=== PATIENT | male | born 1950 | race Caucasian/White ===

== ENCOUNTER → 2018-10-29 | Outpatient (CLI) | payer MEDICARE ==
[~2018-10-29] MED LIST: ACHD5005 PO; CPR500T PO; NAPR-243 PO
== END ==
LOC: WOUNDCARE 13:22
PROVIDERS: ATTEND Surgery
DX: I74.3 Embolism and thrombosis of arteries of the lower extremities (principal); L97.512 Non-pressure chronic ulcer of other part of right foot with fat layer exposed; I70.235 Atherosclerosis of native arteries of right leg with ulceration of other part of foot; T65.222A Toxic effect of tobacco cigarettes, intentional self-harm, initial encounter
CPT/HCPCS: 99204

== ENCOUNTER → 2018-11-05 | Outpatient (CLI) | payer MEDICARE | LOC: WOUNDCARE 13:40 | PROVIDERS: ATTEND Surgery | DX: L97.512 Non-pressure chronic ulcer of other part of right foot with fat layer exposed (principal); I74.3 Embolism and thrombosis of arteries of the lower extremities; I70.235 Atherosclerosis of native arteries of right leg with ulceration of other part of foot; T65.222A Toxic effect of tobacco cigarettes, intentional self-harm, initial encounter; I96 Gangrene, not elsewhere classified | CPT/HCPCS: 99212 ==

== ENCOUNTER 2019-02-05 05:38 | Emergency (ER) | payer MEDICARE ==
[~2019-02-05] VITALS: Ht 187 cm; Wt 113.4 kg
--- NOTE | 2019-02-05 05:45 | NUR ---
WHILE REMOVING PT SHIRT TO PLACE MONITOR PADS IT WAS DISCOVERED WHAT APPEARED TO BE A HERNIATION JUST BELOW THE STERNUM. THE PT MALE FAMILY MEMBER IN THE ROOM REDUCED THE HERNIATION. PROVIDOR WAS NOTIFIED.
[2019-02-05] MEDS ORDERED: DILTIAZEM 25 MG/5 ML INJ (CARDIZEM) VIAL IVP STA (05:59)
[2019-02-05] MEDS ORDERED: ASPIRIN 81 MG CHEW (CHILDREN'S ASA) PO STA (06:01)
[2019-02-05 06:10] LABS: HEMATOCRIT 56 % (40-54); HEMOGLOBIN 18.6 G/DL (13.3-17.7); MEAN CORPUSCULAR HEMOGLOBIN 28 PG (25-34); MEAN CORPUSCULAR HGB CONC 33 G/DL (32-36); MEAN CORPUSCULAR VOLUME 86 FL (80-99); RED CELL DISTRIBUTION WIDTH 15.6 % (10.0-14.5)
[2019-02-05 06:11] LABS: BASOPHILS # (AUTO) 0.1 10^3/uL (0.0-0.1); BASOPHILS % (AUTO) 1 % (0-10); EOSINOPHILS # (AUTO) 0.2 10^3/uL (0.0-0.3); EOSINOPHILS % (AUTO) 2 % (0-10); LYMPHOCYTES # (AUTO) 2.4 X 10^3 (1.0-4.0); LYMPHOCYTES % (AUTO) 16 % (12-44); MEAN PLATELET VOLUME 9.4 FL (7.4-10.4); MONOCYTES # (AUTO) 0.9 X 10^3 (0.0-1.0); MONOCYTES % (AUTO) 6 % (0-12); NEUTROPHILS # (AUTO) 11.4 X 10^3 (1.8-7.8); NEUTROPHILS % (AUTO) 76 % (42-75); PLATELET COUNT 338 10^3/uL (130-400)
--- NOTE | 2019-02-05 06:21 | Diagnostic Imaging Report ---
INDICATION: Chest pain Portable chest 6:03 AM Heart size is mildly enlarged. Pulmonary vascularity is normal. Lungs are clear. There are no effusions or pneumothoraces. IMPRESSION: Cardiomegaly without evidence of pulmonary venous hypertension. Dictated by: Dictated on workstation # [id number]
[2019-02-05 06:22] VITALS: BP 121/94
--- NOTE | 2019-02-05 06:27 | ED Chest Pain ---
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 PT STATES NO PREVIOUS CARDIC PROBLEMS. 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, started self on prednisone recently for inflammation in foot and URI sx's while taking hx, IV cardizem 10mg given, pulse down to 110's, VSS Allergies and Home Medications Allergies Coded Allergies: No Known Drug Allergies (Unverified , 02/05/19) Home Medications Ciprofloxacin 500 Mg Tablet, 1 TAB PO BID Prescribed by: CATRACHO HSIEH on 12/30/10 1644 Hydrocodone Bit/Acetaminophen 1 Each Tablet, 1-2 EACH PO Q6H PRN Prescribed by: CATRACHO HSIEH on 12/30/10 1644 Naproxen 500 Mg Tablet, 1 EACH PO BID PRN Prescribed by: CATRACHO HSIEH on 12/30/10 1644 Patient Home Medication List Home Medication List Reviewed: Yes Review of Systems Review of Systems Constitutional: No dizziness, No fever EENTM: No Blurred Vision Respiratory: Denies Shortness of Air Cardiovascular: Chest Pain, Irregular Heart Rate; Denies Syncope Gastrointestinal: Denies Abdominal Pain, Denies Diarrhea, Denies Vomiting Genitourinary: No Symptoms Reported Musculoskeletal: no symptoms reported Skin: no symptoms reported Past Rzuphea-Iaicqe-Wbxsug Hx Patient Social History Alcohol Use: Rarely Uses Recreational Drug Use: No Smoking Status: Current Everyday Smoker Type Used: Cigars 2nd Hand Smoke Exposure: Yes Recent Foreign Travel: No Contact w/Someone Who Travel: No Recent Infectious Disease Expo: No Recent Hopitalizations: No Physical Abuse: No Sexual Abuse: No Mistreated: No Fear: No Seasonal Allergies Seasonal Allergies: No Past Medical History Surgeries: Yes (TOE AMPUTATION. SURGICAL REPAIR OF FX RIGHT ARM.) Amputation, Orthopedic Respiratory: No Cardiac: No Neurological: No Genitourinary: Yes Kidney Stones Gastrointestinal: No Amputee, Fractures Endocrine: No HEENT: Yes Cataract Loss of Vision: Denies Hearing Impairment: Denies Cancer: No Psychosocial: No Integumentary: No Blood Disorders: No Physical Exam Vital Signs Vital Signs - First Documented 02/05/19 05:45 Temp 35.9 Pulse 138 Resp 19 B/P (MAP) 121/83 (96) Pulse Ox 96 O2 Delivery Room Air Capillary Refill : Less Than 3 Seconds Height, Weight, BMI Height: '" Weight: lbs. oz. kg; 32.00 BMI Method:Stated General Appearance: No Apparent Distress HEENT: PERRL/EOMI Neck: Full Range of Motion Respiratory: Chest Non Tender Cardiovascular: Irregularly Irregular, Tachycardia Gastrointestinal: Non Tender Extremity: Normal Capillary Refill, Non Tender Progress/Results/Core Measures Results/Orders Lab Results Laboratory Tests Test 02/05/19 05:50 Range/Units White Blood Count 15.0 H 4.3-11.0 10^3/uL Red Blood Count 6.56 H 4.35-5.85 10^6/uL Hemoglobin 18.6 H 13.3-17.7 G/DL Hematocrit 56 H 40-54 % Mean Corpuscular Volume 86 80-99 FL Mean Corpuscular Hemoglobin 28 25-34 PG Mean Corpuscular Hemoglobin Concent 33 32-36 G/DL Red Cell Distribution Width 15.6 H 10.0-14.5 % Platelet Count 338 130-400 10^3/uL Mean Platelet Volume 9.4 7.4-10.4 FL Neutrophils (%) (Auto) 76 H 42-75 % Lymphocytes (%) (Auto) 16 12-44 % Monocytes (%) (Auto) 6 0-12 % Eosinophils (%) (Auto) 2 0-10 % Basophils (%) (Auto) 1 0-10 % Neutrophils # (Auto) 11.4 H 1.8-7.8 X 10^3 Lymphocytes # (Auto) 2.4 1.0-4.0 X 10^3 Monocytes # (Auto) 0.9 0.0-1.0 X 10^3 Eosinophils # (Auto) 0.2 0.0-0.3 10^3/uL Basophils # (Auto) 0.1 0.0-0.1 10^3/uL Vital Signs/I&O 02/05/19 02/05/19 05:45 05:57 Temp 35.9 Pulse 138 Resp 19 B/P (MAP) 121/83 (96) Pulse Ox 96 O2 Delivery Room Air Room Air Blood Pressure Mean: 96 Progress Progress Note : Progress Note started to discuss with patient that with first ever new onset a fib, chest pain, and ST depression on EKG, would advise hospitalization pt and son? immediately rejected this they want to sign out against medical advise advised that this is potentially quite serious, that they should remain and follow through with recommendations they understand, pt is mentally competent, wants to sign out against medical advise, and, in fact, did so Comment EKG rapid atrial fib [address] depression V3-5 Departure Impression Primary Impression: Rapid atrial fibrillation Additional Impression: Chest pain Qualified Codes: I20.8 - Other forms of angina pectoris Disposition: 07 AGAINST MEDICAL ADVICE Condition: Unchanged Departure-Patient Inst. Referrals: EMMIE VACA MD (PCP/Family) Primary Care Physician CORY STEEL MD Feb 05, 2019 06:27
[2019-02-05 06:34] LABS: BAND NEUTROPHILS 0 %; BASOPHILS % (MANUAL) 0 %; EOSINOPHILS % (MANUAL) 0 %; LYMPHOCYTES % (MANUAL) 12 %; MONOCYTES % (MANUAL) 5 %; NEUTROPHILS % (MANUAL) 83 %
[2019-02-05 06:35] LABS: RBC MORPH NORMAL
[2019-02-05 06:39] LABS: ALANINE AMINOTRANSFERASE 18 U/L (0-55); ALBUMIN 4.1 GM/DL (3.2-4.5); ALKALINE PHOSPHATASE 68 U/L (40-136); BILIRUBIN,TOTAL 0.3 MG/DL (0.1-1.0); BUN/CREATININE RATIO 23; CALCIUM 9.4 MG/DL (8.5-10.1); CARBON DIOXIDE 26 MMOL/L (21-32); CHLORIDE 99 MMOL/L (98-107); CREATININE SERUM 0.79 MG/DL (0.60-1.30); GFR ESTIMATED > 60; GLUCOSE 183 MG/DL (70-105); MAGNESIUM 2.4 MG/DL (1.6-2.4); POTASSIUM 3.8 MMOL/L (3.6-5.0); SODIUM 138 MMOL/L (135-145); TOTAL PROTEIN 7.2 GM/DL (6.4-8.2)
[2019-02-05 06:54] LABS: PROTHROMBIN TIME PATIENT 13.2 SEC (12.2-14.7)
== END 2019-02-05 06:15 | disposition left against medical advice (07) ==
LOC: EDUNIT# 05:38 → ER FS 05:44
DX: I48.91 Unspecified atrial fibrillation (principal); F17.290 Nicotine dependence, other tobacco product, uncomplicated; Z87.442 Personal history of urinary calculi
CPT/HCPCS: 36415; 71045; 80053; 83735; 83880; 84484; 85007; 85027; 85610; 85730; 93005; 93041